=== PATIENT | female | born 1960 | race Caucasian/White ===

== ENCOUNTER 2021-10-19 07:55 | Outpatient (CLI) | payer OTHER, SELFPAY | END 2021-10-19 07:56 | disposition home or self-care (01) | PROVIDERS: Visit Provider Nurse Practitioner Family | DX: Q82.0 Hereditary lymphedema (principal); I87.313 Chronic venous hypertension (idiopathic) with ulcer of bilateral lower extremity; L97.829 Non-pressure chronic ulcer of other part of left lower leg with unspecified severity; L97.819 Non-pressure chronic ulcer of other part of right lower leg with unspecified severity; I83.022 Varicose veins of left lower extremity with ulcer of calf; L97.229 Non-pressure chronic ulcer of left calf with unspecified severity; E66.9 Obesity, unspecified; Z68.43 Body mass index [BMI] 50.0-59.9, adult | CPT/HCPCS: 11042; 11043; 99203; 99213 ==

== ENCOUNTER 2021-10-26 13:48 | Outpatient (CLI) | payer OTHER, SELFPAY | END 2021-10-26 13:49 | disposition home or self-care (01) | LOC: WOUND 13:48 | PROVIDERS: Visit Provider Nurse Practitioner Family | DX: Q82.0 Hereditary lymphedema (principal); L02.416 Cutaneous abscess of left lower limb | CPT/HCPCS: 11042 ==

== ENCOUNTER 2021-11-04 09:18 | Outpatient (CLI) | payer OTHER, SELFPAY | END 2021-11-04 09:19 | disposition home or self-care (01) | LOC: WOUND 09:18 | PROVIDERS: Visit Provider Nurse Practitioner Family | DX: I89.0 Lymphedema, not elsewhere classified (principal); L02.416 Cutaneous abscess of left lower limb; L97.828 Non-pressure chronic ulcer of other part of left lower leg with other specified severity; L97.818 Non-pressure chronic ulcer of other part of right lower leg with other specified severity | CPT/HCPCS: 11042 ==

== ENCOUNTER 2021-11-11 09:04 | Outpatient (CLI) | payer OTHER, SELFPAY ==
--- NOTE | 2021-11-11 10:15 | CRLHL7_ITS ---
For Patients: As a result of the Cures Act, medical imaging exams and procedure reports are released immediately into your electronic medical record. You may view this report before your referring provider. If you have questions, please contact your health care provider. Indication: eval for possible abscess Technique: Grayscale and color Doppler ultrasound of the left lower extremity soft tissues performed. Comparison: CT 10/26/2021 Findings: Real-time targeted ultrasound of the left calf soft tissues performed. Diffuse subcutaneous edema is present. There is no drainable fluid collection on today`s exam. Normal vascularity. Impression: Diffuse subcutaneous edema without drainable fluid collection. No procedure performed today. Dictated by Cristino Castaneda MD @ 11/11/2021 11:51:59 AM (Electronically Signed)
== END 2021-11-11 09:05 | disposition home or self-care (01) ==
LOC: WOUND 09:05
PROVIDERS: Visit Provider Nurse Practitioner Family
DX: Q82.0 Hereditary lymphedema (principal)
CPT/HCPCS: 10005; 11042; 76882; 76942

== ENCOUNTER 2021-11-18 09:11 | Outpatient (CLI) | payer OTHER, SELFPAY | END 2021-11-18 09:12 | disposition home or self-care (01) | LOC: WOUND 09:11 | PROVIDERS: Visit Provider Nurse Practitioner Family | DX: Q82.0 Hereditary lymphedema (principal); L02.416 Cutaneous abscess of left lower limb | CPT/HCPCS: 11042 ==

== ENCOUNTER 2021-11-25 12:31 | Outpatient (CLI) | payer OTHER, SELFPAY | END 2021-11-25 12:32 | disposition home or self-care (01) | LOC: WOUND 12:31 | PROVIDERS: Visit Provider Nurse Practitioner Family | DX: Q82.0 Hereditary lymphedema (principal); I87.313 Chronic venous hypertension (idiopathic) with ulcer of bilateral lower extremity; L97.829 Non-pressure chronic ulcer of other part of left lower leg with unspecified severity; L97.819 Non-pressure chronic ulcer of other part of right lower leg with unspecified severity | CPT/HCPCS: 11042 ==

== ENCOUNTER 2021-12-16 09:31 | Outpatient (CLI) | payer OTHER, SELFPAY | END 2021-12-16 09:32 | disposition home or self-care (01) | LOC: WOUND 09:31 | PROVIDERS: Visit Provider Nurse Practitioner Family | DX: Q82.0 Hereditary lymphedema (principal) | CPT/HCPCS: 11042 ==

== ENCOUNTER 2021-12-30 09:28 | Outpatient (CLI) | payer OTHER, SELFPAY | END 2021-12-30 09:29 | disposition home or self-care (01) | PROVIDERS: Visit Provider Nurse Practitioner Family | DX: I87.313 Chronic venous hypertension (idiopathic) with ulcer of bilateral lower extremity (principal); L97.829 Non-pressure chronic ulcer of other part of left lower leg with unspecified severity; L97.819 Non-pressure chronic ulcer of other part of right lower leg with unspecified severity; Q82.0 Hereditary lymphedema | CPT/HCPCS: 11042; 11045; 97597 ==

== ENCOUNTER 2022-01-06 09:30 | Outpatient (CLI) | payer OTHER, SELFPAY | END 2022-01-06 09:31 | disposition home or self-care (01) | LOC: WOUND 09:30 | PROVIDERS: Visit Provider Nurse Practitioner Family | DX: I87.313 Chronic venous hypertension (idiopathic) with ulcer of bilateral lower extremity (principal); L97.229 Non-pressure chronic ulcer of left calf with unspecified severity; L97.819 Non-pressure chronic ulcer of other part of right lower leg with unspecified severity; Q82.0 Hereditary lymphedema | CPT/HCPCS: 11042; 11045 ==

== ENCOUNTER 2022-01-27 09:07 | Outpatient (CLI) | payer OTHER, SELFPAY | END 2022-01-27 09:08 | disposition home or self-care (01) | LOC: WOUND 09:07 | PROVIDERS: Visit Provider Nurse Practitioner Family | DX: I87.311 Chronic venous hypertension (idiopathic) with ulcer of right lower extremity (principal); Q82.0 Hereditary lymphedema; L97.319 Non-pressure chronic ulcer of right ankle with unspecified severity | CPT/HCPCS: 11042; 11045 ==

== ENCOUNTER 2022-02-10 14:34 | Outpatient (CLI) | payer OTHER, SELFPAY | END 2022-02-10 14:35 | disposition home or self-care (01) | LOC: WOUND 14:34 | PROVIDERS: Visit Provider Nurse Practitioner Family | DX: I87.313 Chronic venous hypertension (idiopathic) with ulcer of bilateral lower extremity (principal); Q82.0 Hereditary lymphedema; L97.229 Non-pressure chronic ulcer of left calf with unspecified severity; L97.819 Non-pressure chronic ulcer of other part of right lower leg with unspecified severity | CPT/HCPCS: 11042; 11045 ==

== ENCOUNTER 2022-03-03 09:27 | Outpatient (CLI) | payer OTHER, SELFPAY | END 2022-03-03 09:28 | disposition home or self-care (01) | LOC: WOUND 09:27 | PROVIDERS: Visit Provider Nurse Practitioner Family | DX: I87.313 Chronic venous hypertension (idiopathic) with ulcer of bilateral lower extremity (principal); Q82.0 Hereditary lymphedema; L97.829 Non-pressure chronic ulcer of other part of left lower leg with unspecified severity; L97.819 Non-pressure chronic ulcer of other part of right lower leg with unspecified severity | CPT/HCPCS: 11042 ==

== ENCOUNTER 2022-03-31 09:47 | Outpatient (CLI) | payer OTHER, SELFPAY | END 2022-03-31 09:48 | disposition home or self-care (01) | LOC: WOUND 09:48 | PROVIDERS: Visit Provider Nurse Practitioner Family | DX: I87.313 Chronic venous hypertension (idiopathic) with ulcer of bilateral lower extremity (principal); Q82.0 Hereditary lymphedema; L97.229 Non-pressure chronic ulcer of left calf with unspecified severity; L97.819 Non-pressure chronic ulcer of other part of right lower leg with unspecified severity | CPT/HCPCS: 11042 ==

== ENCOUNTER 2022-04-28 09:34 | Outpatient (CLI) | payer OTHER, SELFPAY | END 2022-04-28 09:35 | disposition home or self-care (01) | LOC: WOUND 09:34 | PROVIDERS: Visit Provider Nurse Practitioner Family | DX: Q82.0 Hereditary lymphedema (principal); I87.312 Chronic venous hypertension (idiopathic) with ulcer of left lower extremity; L97.229 Non-pressure chronic ulcer of left calf with unspecified severity | CPT/HCPCS: 11042 ==

== ENCOUNTER 2022-05-12 09:29 | Outpatient (CLI) | payer OTHER, SELFPAY | END 2022-05-12 09:30 | disposition home or self-care (01) | LOC: WOUND 09:29 | PROVIDERS: Visit Provider Nurse Practitioner Family | DX: Q82.0 Hereditary lymphedema (principal); I87.312 Chronic venous hypertension (idiopathic) with ulcer of left lower extremity; L97.229 Non-pressure chronic ulcer of left calf with unspecified severity; L97.829 Non-pressure chronic ulcer of other part of left lower leg with unspecified severity | CPT/HCPCS: 11042 ==

== ENCOUNTER 2022-05-26 09:32 | Outpatient (CLI) | payer OTHER, SELFPAY | END 2022-05-26 09:33 | disposition home or self-care (01) | LOC: WOUND 09:33 | PROVIDERS: Visit Provider Nurse Practitioner Family | DX: I87.312 Chronic venous hypertension (idiopathic) with ulcer of left lower extremity (principal); L97.229 Non-pressure chronic ulcer of left calf with unspecified severity; I89.0 Lymphedema, not elsewhere classified | CPT/HCPCS: 11042; 97597 ==

== ENCOUNTER 2022-06-09 09:03 | Outpatient (CLI) | payer OTHER, SELFPAY | END 2022-06-09 09:04 | disposition home or self-care (01) | LOC: WOUND 09:03 | PROVIDERS: Visit Provider Nurse Practitioner Family | DX: I83.022 Varicose veins of left lower extremity with ulcer of calf (principal); L97.229 Non-pressure chronic ulcer of left calf with unspecified severity; I89.0 Lymphedema, not elsewhere classified | CPT/HCPCS: 11042; 97597 ==

== ENCOUNTER 2022-07-21 09:36 | Outpatient (CLI) | payer OTHER, SELFPAY | END 2022-07-21 09:37 | disposition home or self-care (01) | LOC: WOUND 09:36 | PROVIDERS: Visit Provider Nurse Practitioner Family | DX: I87.312 Chronic venous hypertension (idiopathic) with ulcer of left lower extremity (principal); L97.828 Non-pressure chronic ulcer of other part of left lower leg with other specified severity; Q82.0 Hereditary lymphedema; E66.9 Obesity, unspecified; Z68.43 Body mass index [BMI] 50.0-59.9, adult | CPT/HCPCS: 11042; 99211 ==

== ENCOUNTER 2022-09-01 08:00 | Outpatient (CLI) | payer OTHER, SELFPAY | END 2022-09-01 08:01 | disposition home or self-care (01) | LOC: WOUND 08:00 | PROVIDERS: Visit Provider Nurse Practitioner Family | DX: Q82.0 Hereditary lymphedema (principal); L97.229 Non-pressure chronic ulcer of left calf with unspecified severity; E66.9 Obesity, unspecified; Z68.43 Body mass index [BMI] 50.0-59.9, adult | CPT/HCPCS: 11042 ==